=== PATIENT | male | born 1965 | race Caucasian/White ===

== ENCOUNTER 2021-01-25 22:34 | Emergency (ER) | payer OTHER ==
[2021-01-25 23:08] LABS: BASOPHIL 0.6 % (0-2); EOSINOPHIL 0.2 % (0-5); HCT 34.7 % (42.0-52.0); HGB 12.6 g/dl (13.2-18.0); LYMPHOCYTE 4.7 % (15-48); MCH 31.7 pg (25.0-31.0); MCHC 36.3 g/dL (32.0-36.0); MCV 87.2 fL (78.0-100.0); MONOCYTE 3.8 % (0-12); MPV 9.4 fL (6.0-9.5); NRBC 0; PLT 453 K/uL (150-400); RBC 3.98 M/uL (4.70-6.00); RDW 12.4 % (11.5-14.0); WBC 20.9 K/uL (4.0-10.5)
[2021-01-25 23:12] LABS: NEUTROPHIL 80.1 % (41-80)
[2021-01-25 23:28] LABS: ALBUMIN 1.9 g/dL (3.4-5.0); ALKALINE PHOSHATASE 282 U/L (46-116); ALT 60 U/L (16-63); AMYLASE 47 U/L (25-115); AST 78 U/L (15-37); BILIRUBIN - TOTAL 1.8 mg/dL (0.2-1.0); CHLORIDE 86 mmol/L (98-107); CO2 (BICARBONATE) 14 mmol/L (21-32); CPK 25 U/L (39-308); CREATININE 2.29 mg/dL (0.67-1.17); GLOBULIN (CALCULATION) 4.8 g/dL; GLUCOSE 107 mg/dL (74-106); POTASSIUM 4.7 mmol/L (3.5-5.1); TOTAL PROTEIN 6.7 g/dL (6.4-8.2)
[2021-01-25 23:33] LABS: BUN 95 mg/dL (7-18)
[2021-01-25 23:39] LABS: CORONAVIRUS 2019 SARS-COV-2 NEGATIVE (NEGATIVE); INFLUENZA A NAA NEGATIVE (NEGATIVE)
[2021-01-26 04:51] LABS: BILIRUBIN NEGATIVE (NEGATIVE); BLOOD TRACE-LYSED Ery/uL (NEGATIVE); CLARITY CLEAR (CLEAR); COLOR YELLOW (YELLOW); GLUCOSE (U) NORMAL (NORMAL); LEUKOCYTES NEGATIVE Leu/uL (NEGATIVE); NITRITE NEGATIVE (NEGATIVE); PROTEIN 2+ mg/dL (NEGATIVE); pH 5.5 (5.0-9.0)
[2021-01-26 04:59] LABS: AMPHETAMINES NEGATIVE (NEGATIVE); BARBITURATES NEGATIVE (NEGATIVE); ECSTASY (MDMA) NEGATIVE (NEGATIVE); MARIJUANA (THC) NEGATIVE (NEGATIVE); METHADONE NEGATIVE (NEGATIVE); OPIATES POSITIVE (NEGATIVE); OXYCODONE NEGATIVE (NEGATIVE)
[2021-01-26 05:04] LABS: AMORPHOUS URATES CRYSTALS MODERATE; BACTERIA 1+; URINARY RBC RARE
== END 2021-01-26 04:55 | disposition home or self-care (01) ==
LOC: FER 22:34
PROVIDERS: Emergency Medicine Emergency Medical Services
DX: S22.088A Other fracture of T11-T12 vertebra, initial encounter for closed fracture (principal); J96.90 Respiratory failure, unspecified, unspecified whether with hypoxia or hypercapnia; R00.0 Tachycardia, unspecified; I49.1 Atrial premature depolarization; R10.9 Unspecified abdominal pain; J44.9 Chronic obstructive pulmonary disease, unspecified; F17.210 Nicotine dependence, cigarettes, uncomplicated; Z88.0 Allergy status to penicillin; Z88.6 Allergy status to analgesic agent; W19.XXXA Unspecified fall, initial encounter; Z20.822 Contact with and (suspected) exposure to COVID-19
CPT/HCPCS: 36415; 36600; 70450; 71045; 71260; 72125; 72128; 72131; 80053; 80305; 81001; 82150; 82550; 82803; 83605; 84145; 84484; 85025; 87040; 87070; 87088; 87205; 93005; 94640; 94664; 96365; 96375; 96376; 99152; G0480; J1170; J2405; J2543; J3010; J7030; Q9967; U0002